=== PATIENT | male | born 1975 | race Hispanic/Latino ===

== ENCOUNTER 2024-01-12 15:15 | Emergency (ER) | payer SELFPAY ==
[2024-01-12 15:16] VITALS: BP 147/93
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
[2024-01-12] MEDS: TYLENOL 1000 MG PO (16:59)
[2024-01-12] MEDS: MOTRIN 800 MG PO (17:03)
[2024-01-12 17:44] VITALS: BP 132/77
[2024-01-12 19:08] VITALS: BP 132/77
== END 2024-01-12 19:10 | disposition home or self-care (01) ==
LOC: EMR 15:15
PROVIDERS: EMERGENCY PHYSICIAN Emergency Medicine
DX: R68.84 Jaw pain (principal); S06.0X0A Concussion without loss of consciousness, initial encounter; Y09 Assault by unspecified means; R51.9 Headache, unspecified
CPT/HCPCS: 99284; 70450; 70486; 72125